=== PATIENT | female | born 1955 | race Caucasian/White ===

== ENCOUNTER → 2022-12-21 10:44 | Outpatient (CLI) | payer MEDICARE, OTHER, SELFPAY ==
--- NOTE | 2022-12-21 10:47 | DI.RAD.S_ITS ---
PROCEDURE: XR LUMBAR SPINE MIN 4V INDICATIONS: LOW BACK PAIN TECHNIQUE: 5 views of the lumbar spine were acquired, including bilateral oblique views. COMPARISON: None. FINDINGS: Bones: 5 nonrib-bearing vertebrae are present. Convex right scoliosis, Villafana angle of 15?. Grade 1 retrolisthesis of L2 on L3 and L1 on L2. Moderate disc height loss at all levels. Soft tissues: Overlying bowel gas pattern is normal. No suspicious soft tissue calcifications. Oblique images: No pars defects. IMPRESSION: Convex right scoliosis, and moderate multilevel disc height loss. Dictated by: Jerry Perales M.D. on 12/22/2022 at 9:39 Approved by: Jerry Perales M.D. on 12/22/2022 at 9:41
--- NOTE | 2022-12-21 12:54 | DI.RAD.S_ITS ---
PROCEDURE: XR KNEE RT 3V INDICATIONS: right knee pain TECHNIQUE: 3 views of the knee were acquired. COMPARISON: None. FINDINGS: Bones: No fractures or dislocations. No suspicious bony lesions. Moderate tricompartmental osteoarthritic degenerative changes. Soft tissues: Nonspecific suprapatellar joint effusion.. No suspicious soft tissue calcifications. IMPRESSION: Moderate tricompartmental osteoarthritis. Nonspecific joint effusion. Dictated by: Altagracia Shannon MD, PhD on 12/21/2022 at 13:15 Approved by: Altagracia Shannon MD, PhD on 12/21/2022 at 13:17
== END ==
PROVIDERS: PCP Specialist; Referring Provider Anesthesiology; Visit Provider Anesthesiology
DX: M54.16 Radiculopathy, lumbar region (principal); M17.11 Unilateral primary osteoarthritis, right knee; M25.561 Pain in right knee; M25.461 Effusion, right knee; M54.50 Low back pain, unspecified; M41.9 Scoliosis, unspecified; G89.29 Other chronic pain
CPT/HCPCS: 72110; 73562; 99214

== ENCOUNTER 2023-04-13 12:42 | Outpatient (CLI) | payer MEDICARE, OTHER, SELFPAY ==
--- NOTE | 2023-04-13 12:44 | DI.RAD.S_ITS ---
PROCEDURE: PAIN L INTERLAMINAR/CAUDAL INJ INDICATIONS: SPONDYLOSIS COMPARISON: None. FINDINGS: Fluoroscopic spot filming was performed to verify placement of spinal needles at the L5-S1 level(s), as labeled on the films. Appropriate location(s) of the needle tip(s) was confirmed by injection of iodinated contrast. IMPRESSION: Intraoperative fluoroscopic views L5-S1 epidural. Dictated by: Edgard Redmond M.D. on 04/13/2023 at 13:57 Approved by: Edgard Redmond M.D. on 04/13/2023 at 13:57
[2023-04-13 12:50] VITALS: BP 134/71; PULSE 77; RESP 12; TEMP 36.4; O2SAT 99
[2023-04-13 13:05] VITALS: BP 130/72; PULSE 78; RESP 17; O2SAT 97
[2023-04-13] MEDS: IOPAMIDOL 15 ML VIAL 3 ML INJ (13:06)
[2023-04-13] MEDS: DEXAMETHASONE 10 MG/ML VIAL 20 MG INJ (13:06)
[2023-04-13 13:10] VITALS: BP 129/74; PULSE 78; RESP 21; O2SAT 97
--- NOTE | 2023-04-13 13:16 | P.PCN_ITS ---
Date/Time/Diagnoses Date of procedure: 04/13/23 Time of procedure: 13:00 Procedure Notes Physician: Bebeto Hughes Total Fluoroscopy time (seconds): 10 Total sedation minutes: 0 Procedure in detail & Post-procedure care: L5-S1 Interlaminar Epidural Steroid Injection Indications: Tish is presenting for treatment of lumbar radiculopathy with low back and leg pain. Preoperative diagnosis: Lumbar radiculopathy Postoperative diagnosis: Same Focused Examination: Ax3 Mood and affect are normal Vital Signs: VSS Consent: Following review of allergies and potential side effects/complications, including, but not necessarily limited to, infection, allergic reaction, local tissue breakdown, stroke, temporary or permanent nerve injury, paralysis, and possible , the patient indicated that they understood and agreed to proceed.? An informed consent document was signed by the patient, witnessed by a nurse and placed in the patient's chart.? Additionally, other treatment options including medications and physical therapy were reviewed with the patient. All questions were answered. Site was then marked. Anesthesia: Local Position: Prone Monitoring: NIBP, Pulse oximetry, 3 lead EKG Needle used: 18 G 3.5? Tuohy Contrast: Isovue 300M Injectate: Dexamethasone 15 mg with 1% lidocaine 1.5 mL Technique: The skin was prepped with chloraprep and then draped in a sterile fashion. Time out was performed as per protocol. Oxygen applied via NC. Skin and subcutaneous structures of the needle entry site was then infiltrated with 3 mL of lidocaine 1%. Under AP, lateral and contralateral oblique fluoroscopic control, the Tuohy needle was guided into the L5-S1 epidural space. The space was accessed with loss of resistance technique. Isovue 300M was then injected and the spread was consistent with the epidural space. There was no evidence for intravascular or intrathecal uptake. After negative aspiration, the above- mentioned injectate was then slowly administered and the needle withdrawn. The patient expressed no unusual discomfort or paresthesias during the injection. Band-Aids applied to injection sites. EBL: less than 1 ml Complications: None Post Procedure: Patient was taken to the recovery and monitored. The patient was provided a Pain Log to continue to record the patient's response to the target- specific procedure prior to the patient's follow-up visit with the referring physician. Patient was stable upon discharge. Detailed post procedure instructions were provided. Patient was asked to call in the event of worsening pain, fever, weakness, numbness or bladder or bowel incontinence.
[2023-04-13 13:17] VITALS: BP 150/70; PULSE 83; RESP 14; O2SAT 99
[2023-04-13 13:22] VITALS: BP 135/65; PULSE 82; RESP 16; O2SAT 100
== END 2023-04-13 13:32 | disposition home or self-care (01) ==
PROVIDERS: PCP Specialist; Referring Provider Anesthesiology; Visit Provider Anesthesiology
DX: M54.16 Radiculopathy, lumbar region (principal)
CPT/HCPCS: 62323; J1100

== ENCOUNTER → 2023-05-17 11:19 | Outpatient (CLI) | payer MEDICARE, OTHER, SELFPAY ==
--- NOTE | 2023-05-17 11:21 | DI.RAD.S_ITS ---
PROCEDURE: XR CERVICAL SPINE 4V OR 5V INDICATIONS: neck pain TECHNIQUE: 5 views of the cervical spine acquired. COMPARISON: None. FINDINGS: Bones: No fractures or dislocations to the C7 level. Reversal of the normal cervical lordosis. Grade 1 anterolisthesis of C3 on C4. Moderate disc height loss at C3-4, C6-7. Moderate to severe disc height loss at C4-5, C5-6. Oblique images demonstrate no bony foraminal stenoses. Multilevel facet arthrosis. Soft tissues: No prevertebral soft tissue swelling. IMPRESSION: Moderate to severe, multilevel degenerative disc disease and facet arthrosis. Grade 1 anterolisthesis of C3 on C4, presumably due to facet arthrosis. Dictated by: Jerry Perales M.D. on 05/17/2023 at 15:16 Approved by: Jerry Perales M.D. on 05/17/2023 at 15:17
== END ==
PROVIDERS: PCP Specialist; Referring Provider Anesthesiology; Visit Provider Anesthesiology
DX: M47.812 Spondylosis without myelopathy or radiculopathy, cervical region (principal); M43.16 Spondylolisthesis, lumbar region; M50.31 Other cervical disc degeneration, high cervical region; M54.16 Radiculopathy, lumbar region; M54.9 Dorsalgia, unspecified
CPT/HCPCS: 72050; 99213

== ENCOUNTER 2023-11-16 08:09 | Outpatient (CLI) | payer MEDICARE, OTHER, SELFPAY ==
[2023-11-16 08:35] VITALS: BP 125/71; PULSE 75; RESP 20; TEMP 36.1; O2SAT 98
[2023-11-16 09:00] VITALS: BP 138/72; PULSE 73; RESP 20; O2SAT 99
[2023-11-16] MEDS: DEXAMETHASONE 10 MG/ML VIAL INJ (09:00)
[2023-11-16] MEDS: iopamidoL 15 ML VIAL 3 ML INJ (09:00)
--- NOTE | 2023-11-16 09:00 | DI.RAD.S_ITS ---
PROCEDURE: PAIN L INTERLAMINAR/CAUDAL INJ INDICATIONS: Radiculopathy COMPARISON: Located Within [facility], XA, PAIN L INTERLAMINAR/CAUDAL INJ, 04/13/2023, 13:05. FINDINGS: Fluoroscopic spot filming was performed to verify placement of spinal needles at the L5-S1 level(s), as labeled on the films. Appropriate location(s) of the needle tip(s) was confirmed by injection of iodinated contrast. IMPRESSION: Intraoperative fluoroscopic views of L5-S1 injection. Please see procedure note for details. Dictated by: Mark Owens M.D. on 11/16/2023 at 12:52 Approved by: Mark Owens M.D. on 11/16/2023 at 12:52
[2023-11-16 09:05] VITALS: BP 139/78; PULSE 70; RESP 17; O2SAT 97
[2023-11-16 09:06] VITALS: BP 142/85; PULSE 71; RESP 17; O2SAT 98
[2023-11-16 09:10] VITALS: BP 134/82; PULSE 75; RESP 18; O2SAT 99
--- NOTE | 2023-11-16 12:16 | P.PCN_ITS ---
Date/Time/Diagnoses Date of procedure: 11/16/23 Time of procedure: 09:00 Procedure Notes Physician: Bebeto Hughes Total Fluoroscopy time (seconds): 15 Total sedation minutes: 0 Procedure in detail & Post-procedure care: L5-S1 Interlaminar Epidural Steroid Injection Indications: Tish is presenting for treatment of lumbar radiculopathy with low back and leg pain. Preoperative diagnosis: Lumbar radiculopathy Postoperative diagnosis: Same Focused Examination: Ax3 Mood and affect are normal Vital Signs: VSS Consent: Following review of allergies and potential side effects/complications, including, but not necessarily limited to, infection, allergic reaction, local tissue breakdown, stroke, temporary or permanent nerve injury, paralysis, and possible , the patient indicated that they understood and agreed to proceed.? An informed consent document was signed by the patient, witnessed by a nurse and placed in the patient's chart.? Additionally, other treatment options including medications and physical therapy were reviewed with the patient. All questions were answered. Site was then marked. Anesthesia: Local Position: Prone Monitoring: NIBP, Pulse oximetry, 3 lead EKG Needle used: 18 G 3.5? Tuohy Contrast: Isovue 300M Injectate: Dexamethasone 10 mg with 1% lidocaine 2 mL Technique: The skin was prepped with chloraprep and then draped in a sterile fashion. Time out was performed as per protocol. Oxygen applied via NC. Skin and subcutaneous structures of the needle entry site was then infiltrated with 3 mL of lidocaine 1%. Under AP, lateral and contralateral oblique fluoroscopic control, the Tuohy needle was guided into the L5-S1 epidural space. The space was accessed with loss of resistance technique. Isovue 300M was then injected and the spread was consistent with the epidural space. There was no evidence for intravascular or intrathecal uptake. After negative aspiration, the above- mentioned injectate was then slowly administered and the needle withdrawn. The patient expressed no unusual discomfort or paresthesias during the injection. Band-Aids applied to injection sites. EBL: less than 1 ml Complications: None Post Procedure: Patient was taken to the recovery and monitored. The patient was provided a Pain Log to continue to record the patient's response to the target- specific procedure prior to the patient's follow-up visit with the referring physician. Patient was stable upon discharge. Detailed post procedure instructions were provided. Patient was asked to call in the event of worsening pain, fever, weakness, numbness or bladder or bowel incontinence.
== END 2023-11-16 09:22 | disposition home or self-care (01) ==
PROVIDERS: PCP Specialist; Referring Provider Anesthesiology; Visit Provider Anesthesiology
DX: M54.16 Radiculopathy, lumbar region (principal)
CPT/HCPCS: 62323; 64494; J1100

== ENCOUNTER 2024-03-14 13:05 | Outpatient (CLI) | payer MEDICARE, OTHER, SELFPAY ==
[2024-03-14] VITALS (7 sets, daily range): BP systolic 118–138; BP diastolic 58–77; PULSE 75–80; RESP 12–22; TEMP 35.9; O2SAT 96–99
--- NOTE | 2024-03-14 13:30 | DI.RAD.S_ITS ---
PROCEDURE: PAIN C/T FACET INJ/BLK 1ST L INDICATIONS: CERVICAL SPONDYLOSIS COMPARISON: None. FINDINGS: Fluoroscopic spot filming was performed to verify placement of spinal needles at the right C3, C4, C5 level(s), as labeled on the films. Appropriate location(s) of the needle tip(s) was confirmed by injection of iodinated contrast. IMPRESSION: Intraoperative guidance provided. Dictated by: Jaxon Narayan M.D. on 03/14/2024 at 17:00 Approved by: Jaxon Narayan M.D. on 03/14/2024 at 17:01
[2024-03-14] MEDS: iopamidoL 15 ML VIAL 3 ML INJ (13:51)
[2024-03-14] MEDS: BUPIVACAINE 0.5% (PF) 10 ML VIAL 5 ML INJ (13:52)
--- NOTE | 2024-03-14 16:54 | P.PCN_ITS ---
Date/Time/Diagnoses Date of procedure: 03/14/24 Time of procedure: 13:30 Procedure Notes Physician: Bebeto Hughes Total Fluoroscopy time (seconds): 27 Total sedation minutes: 0 Procedure in detail & Post-procedure care: Right C3, 4, 5 Cervical Medial Branch Blocks Indications: Tish is presenting for treatment of cervical spondylosis with cervical pain. Preoperative diagnosis: Cervical spondylosis Postoperative diagnosis: Same Pre-procedure History: F Patient demonstrates today moderate to severe non- radicular neck pain without neurologic deficit aggravated by hyperextension yes Neck pain greater than arm pain? yes Patient today has tenderness over the suspected joint(s) yes History of post-traumatic injury? no Hypertrophic arthropathy yes Neck pain associated with suspected motion segment instability, hypermobility or pseudoarthrosis no Focused Examination: Ax3 Mood and affect are normal Vital Signs: VSS Consent: Following review of allergies and potential side effects/complications, including, but not necessarily limited to, infection, allergic reaction, local tissue breakdown, stroke, temporary or permanent nerve injury, paralysis, and possible , the patient indicated that they understood and agreed to proceed.? An informed consent document was signed by the patient, witnessed by a nurse and placed in the patient's chart.? Additionally, other treatment options including medications and physical therapy were reviewed with the patient. All questions were answered. Site was then marked. Anesthesia: Local Position: Prone Monitoring: NIBP, Pulse oximetry, 3 lead EKG Needle used: 22G 3.5 inch spinal needle Contrast: Isovue 300M Injectate: 0.5% bupivacaine 0.5 mL per site Procedure: The patient was brought into the procedure room and positioned into the prone position. Skin was prepped with a Chloraprep solution, allowed to air dry, and then draped in sterile fashion.? The right C3-4 and C4-5 facet joints were visually identified with fluoroscopy. Lidocaine 1% was used to anesthetize the skin over each target destination with a 25ga needle. A 22 ga, 3.5 inch spinal needle was advanced to the location of the medial branch at the waist of the articular pillar using intermittent fluoroscopy in the AP view. Isovue 300M contrast 0.2ml was injected at each level outlining the borders for each level in the AP/lateral views and confirmed in the foraminal view. There was no evidence of vascular or intrathecal uptake. The above injectate was slowly injected at each target destination. At the end of the procedure the needles were withdrawn and Band-Aids were applied for a dressing. Post Procedure: Patient was taken to the recovery and monitored. The patient was provided a Pain Log to continue to record the patient's response to the target- specific procedure prior to the patient's follow-up visit with the referring physician. Patient was stable upon discharge. Detailed post procedure instructions were provided. Patient was asked to call in the event of worsening pain, fever, weakness, numbness or bladder or bowel incontinence. Based on the medial branches blocked today, if the patient meets insurance criteria for radiofrequency, the treatment should result in the denervation of the right C3-4 and C4-5 facet joint nerves. We would expect to denervate a total of 2 facets during the radiofrequency ablation. Complications: None
== END 2024-03-14 14:08 | disposition home or self-care (01) ==
LOC: RAD 13:06
PROVIDERS: PCP Specialist; Referring Provider Anesthesiology; Visit Provider Anesthesiology
DX: M47.812 Spondylosis without myelopathy or radiculopathy, cervical region (principal)
CPT/HCPCS: 64490; 64491; 99152

== ENCOUNTER → 2025-06-28 12:45 | Outpatient (CLI) | payer MEDICARE, OTHER, SELFPAY ==
--- NOTE | 2025-06-28 12:49 | DI.MRI.S_ITS ---
PROCEDURE: MR SHOULDER RT WO CON INDICATIONS: RT SHOULDER PAIN TECHNIQUE: Noncontrast oblique coronal T2 fast spin echo with fat saturation, oblique sagittal T1 spin echo and T2 fast spin echo with fat saturation, axial T1 spin echo and T2 fast spin echo with fat saturation through the shoulder. COMPARISON: None. FINDINGS: Image quality: Diagnostic Rotator cuff: Bulk: No significant atrophy Teres minor: Intact Supraspinatus: Moderate tendinopathy and multifocal partial-thickness tears, most significant at the bursal surface near the insertion and throughout the interstitial fibers. Articular sided tear also seen at the muscle tendon junction Infraspinatus: [id number] tendinopathy. Small articular sided tears at the distal tendon. Subscapularis: [id number] thickening and tendinopathy. Partial-thickness interstitial and articular sided tears at the distal tendon Bones and bursae: GH joint: Moderate arthrosis. Joint effusion with small debris AC joint: Moderate arthrosis Humeral head: No acute fracture Scapula and acromion: No acute fracture Bursa: Mild bursal edema Capsule: Labrum: Circumferentially degenerated labrum. Semi circumferential labral tear is seen centered in the superior labrum, involving the biceps tendon. Long head biceps tendon: Biceps split tear is seen. IGHL: Intact Rotator interval: Effaced with edema Soft tissues: No axillary adenopathy. Lungs are not well seen. IMPRESSION: Moderate overall rotator cuff tendinopathy and multifocal partial tears. No full-thickness defect or significant atrophy. Moderate glenohumeral and acromioclavicular arthrosis. Glenohumeral joint effusion seen with debris. Mild adjacent bursal edema. Degenerated labrum with semi circumferential tear centered in the superior labrum, extending to the biceps as a split tear. Rotator interval is effaced with edema likely capsulitis. Dictated by: Chay Santiago M.D. on 06/28/2025 at 14:33 Approved by: Chay Santiago M.D. on 06/28/2025 at 14:36
--- NOTE | 2025-06-28 12:50 | DI.MRI.S_ITS ---
P ROCEDURE: MR KNEE RT WO CON INDICATIONS: RT KNEE PAIN TECHNIQUE: Noncontrast sagittal PD fast spin echo and T2 fast spin echo with fat saturation, sagittal 3-D FLASH with fat saturation; coronal T1 spin echo and PD fast spin echo with fat saturation, and axial PD fast spin echo with fat saturation through the knee. COMPARISON: [facility], CR, XR KNEE RT 3V, 12/21/2022, 12:55. [facility], MR, MR KNEE LT WO CON, 06/28/2025, 13:48. FINDINGS: Image quality: Diagnostic Menisci: Medial: Free edge truncation and oblique tear of the body and posterior horn of the medial meniscus. Lateral: Complex tear of the lateral meniscus, completely torn and nonvisualized posterior body and posterior horn. A portion of the root remains. Oblique tear extends to the anterior horn. Cruciate ligaments: No full-thickness tear. Mild signal abnormality of the ACL Intact PCL. Medial structures: MCL: Intact Pes anserine tendons: Intact Semimembranosus: Intact Lateral structures: LCL: Partial tear at the origin with mild edema Biceps femoris: Mild insertional tendinopathy IT band: Intact Popliteus tendon: Mild insertional tendinopathy Anterior structures: Extensor mechanism: Extensor mechanism enthesopathy. No significant acute edema Fat pads: Mild Hoffa's fat pad and prepatellar edema Medial retinaculum: Intact. Trochlea: Unremarkable morphology. Bone and joint: Bones: No acute fracture related edema. Postsurgical changes are seen just medial to the tibial tuberosity. Cartilage: Moderate cartilage loss is seen throughout the patella weight- bearing surfaces, particularly along the lateral femoral condyle and lateral tibial plateau. Joint space: Moderate effusion Robertson's cyst: Moderate complicated Robertson's cyst with debris Soft tissues: No significant vascular or other soft tissue pathology. IMPRESSION: Completely torn lateral meniscus at the body and posterior horn. Oblique tear extends to the anterior horn. Complex tear also involves the medial meniscus. Possible mild ACL sprain versus mild mucoid degeneration. Partial tear and sprain at the proximal LCL. Mild adjacent tendinopathy of the biceps femoris and popliteus. Moderate overall arthrosis, with cartilage loss most significant along the lateral compartment and patella. Moderate effusion. Moderate complicated Robertson's cyst with debris. Mild Hoffa's fat pad edema and prepatellar edema. Dictated by: Chay Santiago M.D. on 06/28/2025 at 14:26 Approved by: Chay Santiago M.D. on 06/28/2025 at 14:32
--- NOTE | 2025-06-28 12:50 | DI.MRI.S_ITS ---
PROCEDURE: MR KNEE LT WO CON INDICATIONS: LT KNEE PAIN TECHNIQUE: Noncontrast sagittal PD fast spin echo and T2 fast spin echo with fat saturation, sagittal 3-D FLASH with fat saturation; coronal T1 spin echo and PD fast spin echo with fat saturation, and axial PD fast spin echo with fat saturation through the knee. COMPARISON: [facility], MR, MR KNEE RT WO CON, 06/28/2025, 13:26. FINDINGS: Image quality: Excellent. Menisci: Medial meniscus multidirectional degenerative tear with transverse tear of the body and vertical tear of the free edge of the posterior horn. The tear is do not extend to the meniscal root. The lateral meniscus is intact. Ligaments: The ACL is intact. The PCL is intact. The MCL is intact. The LCL is intact. The posterolateral supporting structures are intact. Extensor Mechanism: Quadriceps tendon is intact. The patellar tendon is intact. The patellar retinacula are intact. Osseous Structures: There is no fracture or dislocation. No suspicious marrow replacing process. Moderate joint effusion. Additional calcified bodies in the posterior intercondylar recess. Hoffa's fat pad is unremarkable. Articular Cartilage: Patellofemoral compartment: Deep thinning in fraying of the inferior central femoral trochlea, grade 3. Diffuse grade 2-3 articular cartilage thinning in fraying of the patellar medial facet. Medial compartment: Diffuse grade 3 thinning in fraying of the central weight- bearing condyle and tibia with areas of full-thickness articular cartilage thinning in the peripheral central plateau. Lateral compartment: Superficial thinning in fraying, grade 1-2 within the central weight-bearing compartment. Other: The visualized muscles and tendons appear normal for age. Moderate Robertson's cyst with a 1.5 cm calcified body within the Robertson's cyst. Normal neurovascular signal. Nonspecific anterior knee subcutaneous fat edema IMPRESSION: 1. 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 2. Medial meniscus multidirectional degenerative tear of the body and posterior horn. 3. Moderate Robertson's cyst with a calcified 1.5 cm body within the cyst and additional subcentimeter calcified bodies in the posterior intercondylar recess.. Dictated by: Armond Gilbert M.D. on 06/28/2025 at 15:00 Approved by: Armond Gilbert M.D. on 06/28/2025 at 15:05
== END ==
LOC: MRI 12:46
PROVIDERS: PCP Specialist; Referring Provider Specialist; Visit Provider Nurse Practitioner Family
DX: S83.231A Complex tear of medial meniscus, current injury, right knee, initial encounter (principal); S83.271A Complex tear of lateral meniscus, current injury, right knee, initial encounter; S83.421A Sprain of lateral collateral ligament of right knee, initial encounter; S83.242A Other tear of medial meniscus, current injury, left knee, initial encounter; M75.111 Incomplete rotator cuff tear or rupture of right shoulder, not specified as traumatic; M17.11 Unilateral primary osteoarthritis, right knee; M19.011 Primary osteoarthritis, right shoulder; M25.811 Other specified joint disorders, right shoulder; M25.461 Effusion, right knee; M71.21 Synovial cyst of popliteal space [Baker], right knee; M23.91 Unspecified internal derangement of right knee; M22.42 Chondromalacia patellae, left knee; M71.22 Synovial cyst of popliteal space [Baker], left knee; M23.42 Loose body in knee, left knee; S43.491A Other sprain of right shoulder joint, initial encounter; S46.111A Strain of muscle, fascia and tendon of long head of biceps, right arm, initial encounter
CPT/HCPCS: 73221; 73721